=== PATIENT | male | born 1935 | race Caucasian/White ===

== ENCOUNTER 2022-08-06 10:48 | Emergency (ER) | payer MEDICARE, SELFPAY ==
[2022-08-06 11:00] VITALS: BP 110/53; PULSE 79; RESP 20; TEMP 36.8; O2SAT 95
--- NOTE | 2022-08-06 11:05 | ED.SKABFB ---
HPI - Skin/Abscess/Foreign Bdy General Chief complaint: Skin/Abscess/Foreign Body Stated complaint: rash on arms/hands Source: patient and RN notes reviewed History of Present Illness HPI narrative: 87 yo M presents to urgent care with daughter at side. Daughter states pt was noted to have a rash to bilateral lower arms 1 week ago. Patient reports associated pruritus. They applied ketoconazole cream for a couple days with good relief. Daughter states pt began 2 new meds recently but unsure exactly when; primidone and Januvia. Denies any new lotions, soaps, or foods. Denies any fevers, chills, vomiting, chest pain, or SOB. Pt has a follow up appt with PCP on August 19. Related Data Home Medications Medication Instructions Recorded Confirmed budesonide-formoterol HFA 160 1 puff inhalation DIRECTED 08/06/22 08/06/22 mcg-4.5 mcg/actuation aerosol inhaler (Symbicort) cyclobenzaprine 10 mg tablet 10 mg PO DIRECTED 08/06/22 08/06/22 escitalopram oxalate 20 mg tablet 20 mg PO DIRECTED 08/06/22 08/06/22 gabapentin 300 mg capsule 300 mg PO DIRECTED 08/06/22 08/06/22 hydrochlorothiazide 25 mg tablet 25 mg PO DIRECTED 08/06/22 08/06/22 ketoconazole 2 % topical cream applic topical 08/06/22 levothyroxine 50 mcg tablet 50 mcg PO DIRECTED 08/06/22 08/06/22 metformin 500 mg tablet,extended 500 mg PO DIRECTED 08/06/22 08/06/22 release 24 hr metoprolol tartrate 25 mg tablet 25 mg PO DIRECTED 08/06/22 08/06/22 olmesartan 20 mg tablet 20 mg PO DIRECTED 08/06/22 08/06/22 oxybutynin chloride 5 mg tablet 5 mg PO DIRECTED 08/06/22 08/06/22 pravastatin 40 mg tablet 40 mg PO DIRECTED 08/06/22 08/06/22 primidone 50 mg tablet 50 mg PO DIRECTED 08/06/22 08/06/22 sitagliptin phosphate 100 mg 100 mg PO DIRECTED 08/06/22 08/06/22 tablet (Januvia) Allergies Allergy/AdvReac Type Severity Reaction Status Date / Time hydrocodone Allergy Unknown Other Verified 08/06/22 11:15 meperidine Allergy Unknown Other Verified 08/06/22 11:15 lidocaine Allergy Other Verified 08/06/22 11:16 adhesive tape AdvReac Redness of Verified 08/06/22 11:16 Skin Review of Systems Review of Systems: CONSTITUTIONAL: Denies fever, chills, or sweats. EYES: Denies visual changes, redness, or discharge. ENT: Denies otalgia and sore throat CARDIOVASCULAR: Denies chest pain, palpitations, or edema. RESPIRATORY: Denies cough or dyspnea. GASTROINTESTINAL: Denies abdominal pain, nausea, vomiting, or diarrhea. GENITOURINARY: Denies dysuria or hematuria. SKIN: Reports rash and itching. MUSCULOSKELETAL: Denies back pain, joint pain, or myalgia. NEUROLOGIC: Denies headache, numbness, or weakness. PMFSH Comments At the time of my signature, I reviewed and agree with the nursing past medical, surgical, social, and family history. There is no relevant family history pertinent to the patient complaint. Exam Narrative: GENERAL: This is a well-nourished, well-developed patient, in no apparent distress. HEAD: normocephalic, atraumatic. EYES: Sclera clear/white. Vision is grossly intact. EARS: External ears normal, auditory canals clear and without drainage, TMs normal without perforation. Hearing grossly intact. NOSE: External nose normal with no obvious nasal discharge, nares without redness, no rhinorrhea. CARDIOVASCULAR: Regular rate and rhythm without murmurs, gallops, or rubs. RESPIRATORY: Clear to auscultation. Breath sounds equal bilaterally. No wheezes, rales, or rhonchi. GASTROINTESTINAL: Abdomen soft, non-tender, nondistended. Bowel sounds are active. No hepato-splenomegaly, or palpable masses. No guarding. SKIN: warm, intact. Bilateral forearms noted to be erythremic, warm to the touch, with dry rash. No drainage noted. NEURO: awake, alert Course Course Level of Care: Express Care Visit Vital Signs Vital signs: Vital Signs Temperature 98.3 F 08/06/22 11:00 Pulse Rate 79 08/06/22 11:00 Respiratory Rate 20 08/06
[2022-08-06 11:19] VITALS: BP 110/53; PULSE 79; RESP 20; TEMP 36.8; O2SAT 95
== END 2022-08-06 11:30 | disposition home or self-care (01) ==
PROVIDERS: Emergency Provider Nurse Practitioner Family; PCP Family Medicine
DX: L03.114 Cellulitis of left upper limb (principal); L03.113 Cellulitis of right upper limb; L30.9 Dermatitis, unspecified; E78.00 Pure hypercholesterolemia, unspecified; I10 Essential (primary) hypertension; E11.9 Type 2 diabetes mellitus without complications; Z96.611 Presence of right artificial shoulder joint
CPT/HCPCS: 99213; G0463

== ENCOUNTER 2023-01-18 11:28 | Emergency (ER) | payer MEDICARE, SELFPAY ==
--- NOTE | ~2023-01-18 | XR_ITS ---
EXAMINATION: XR ankle LT min 3V DATE: 01/18/2023 12:03 INDICATION: Left ankle injury and pain and swelling. TECHNIQUE: 4 views of left ankle were obtained. COMPARISON: None. FINDINGS: There is an oblique fracture of distal fibula with anteromedial aspect of the fracture line 1.7 cm distal to the level of the tibial plafond. The distal fracture fragment demonstrates near-love tomic alignment. 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 There are enthe sophytes at the posterior and plantar aspects of calcaneal tuberosity. Ankle soft tissue swelling is noted. IMPRESSION: 1. Oblique fracture of distal fibula. Reviewed, dictated and finalized at location A.
--- NOTE | 2023-01-18 11:29 | ED.LOWEXIN ---
HPI - Extremity Injury (Lower) General Chief Complaint: Extremity Injury, Lower Stated Complaint: Fall Injury/Left Ankle Time Seen by Provider: 01/18/23 11:29 Source: patient Mode of arrival: ambulatory Limitations: no limitations History of Present Illness HPI Narrative: Issac is an 88-year-old male patient presenting to the clinic today with complaints of left ankle pain/injury after falling on Wednesday in the bathroom. Has pain to the left lateral ankle. Pain worse with ambulation. Related Data Home Medications Medication Instructions Recorded Confirmed budesonide-formoterol HFA 160 1 puff inhalation DIRECTED 08/06/22 01/18/23 mcg-4.5 mcg/actuation aerosol inhaler (Symbicort) cyclobenzaprine 10 mg tablet 10 mg PO DIRECTED 08/06/22 01/18/23 escitalopram oxalate 20 mg tablet 20 mg PO DIRECTED 08/06/22 01/18/23 gabapentin 300 mg capsule 300 mg PO DIRECTED 08/06/22 01/18/23 hydrochlorothiazide 25 mg tablet 25 mg PO DIRECTED 08/06/22 01/18/23 ketoconazole 2 % topical cream applic topical 08/06/22 levothyroxine 50 mcg tablet 50 mcg PO DIRECTED 08/06/22 01/18/23 metformin 500 mg tablet,extended 500 mg PO DIRECTED 08/06/22 01/18/23 release 24 hr metoprolol tartrate 25 mg tablet 25 mg PO DIRECTED 08/06/22 08/06/22 olmesartan 20 mg tablet 20 mg PO DIRECTED 08/06/22 01/18/23 oxybutynin chloride 5 mg tablet 5 mg PO DIRECTED 08/06/22 01/18/23 pravastatin 40 mg tablet 40 mg PO DIRECTED 08/06/22 01/18/23 primidone 50 mg tablet 50 mg PO DIRECTED 08/06/22 01/18/23 sitagliptin phosphate 100 mg 100 mg PO DIRECTED 08/06/22 01/18/23 tablet (Januvia) tamsulosin 0.4 mg capsule 0.4 mg PO DAILY 01/18/23 01/18/23 Allergies Allergy/AdvReac Type Severity Reaction Status Date / Time hydrocodone Allergy Unknown Other Verified 01/18/23 11:31 meperidine Allergy Unknown Other Verified 01/18/23 11:31 lidocaine Allergy Other Verified 01/18/23 11:31 adhesive tape AdvReac Redness of Verified 01/18/23 11:31 Skin Review of Systems Review of Systems: Pertinent positives per HPI. Patient denies any fever, chills, rash, headache, visual changes, dizziness, cough, runny nose, sore throat, shortness of breath, chest pain, palpitations, nausea, vomiting, diarrhea, constipation, abdominal pain, or any urinary issues. PMFSH Comments At the time of my signature, I reviewed and agree with the nursing past medical, surgical, social, and family history. There is no relevant family history pertinent to the patient complaint. Exam Narrative: General: Well-developed, well nourished, in no apparent distress Head: Normocephalic, atraumatic. Cardio: Regular rate and rhythm, s1 and s2 normal, no murmur appreciated. Resp: Clear to auscultation bilaterally, no rhonchi, rales, wheezing or rubs. Musculoskeletal: No deformity,2 plus pitting edema to the foot, tender to palpation over the lateral and anterior ankle, pain with flexion/extension as well as valgus/varus testing, no laxity, grossly normal range of motion, peripheral pulse strong, no edema, no cyanosis, normal gait and station Course Course Emergency Course: Portions of this record may have been created with voice recognition software. Level of Care: Express Care Visit Vital Signs Vital signs: Vital signs reviewed MDM - Extremity Injury (Lower) MDM Narrative Medical decision making narrative: At the time of visit patient is resting comfortably on the exam table. X-ray of the left ankle was performed and shows a left mildly displaced closed distal fibula fracture. Short-leg OCL splint was placed to the left leg. Supportive measures were discussed with the patient and the daughter and they voiced understanding discharge instructions agrees to treatment plan. Differential Diagnosis Differential diagnosis: Likely ankle sprain and strain, ankle fracture and other (Ground level fall) Discharge Plan Discharge Clinical Impression: Closed fibul
[2023-01-18 11:38] VITALS: BP 134/67; PULSE 90; RESP 18; TEMP 37.1; O2SAT 98
== END 2023-01-18 12:23 | disposition home or self-care (01) ==
PROVIDERS: Emergency Provider Nurse Practitioner Family; PCP Family Medicine
DX: S82.62XA Displaced fracture of lateral malleolus of left fibula, initial encounter for closed fracture (principal); W19.XXXA Unspecified fall, initial encounter
CPT/HCPCS: 29515; 73610; 99214; G0463